=== PATIENT | female | born 1955 | race Caucasian/White ===

== ENCOUNTER → 2021-03-27 | Outpatient (CLI) | payer MEDICARE, OTHER ==
[~2021-03-27] MED LIST: ALBUTEROL NEBULIZER INH; ASPIR-LOW81 MG PO; CEFUROXIME500 MG PO; CURCUMIN250 GM PO; DICLOFENAC PO; ELIQUIS2.5 MG PO; FISH OIL 1,0001 EACH PO; GLUCOPHAGE850 MG PO; LYRICA100 MG PO; MEDROL4 MG PO; METOCLOPRAMIDE H5 MG PO; PERCOCET 7.5-31 EACH PO; PREGABALIN100 MG PO; PRILOSEC OTC20 MG PO; TAMOXIFEN CITRA20 MG PO; TOPROL XL25 MG PO; TYLENOL 500 MG500 MG PO; ULTRAM50 MG PO; VENTOLIN HFA 66.7 GM INH; VITAMIN B12 PO; VITAMIN C1000 MG PO; VITAMIN D PO; ZANAFLEX2 MG PO; ZANTAC PO; ZETIA10 MG PO
== END ==
LOC: KOH-I 09:47
DX: M47.816 Spondylosis without myelopathy or radiculopathy, lumbar region (principal); M51.36 Other intervertebral disc degeneration, lumbar region
CPT/HCPCS: 72110; 72170

== ENCOUNTER → 2021-04-05 | Outpatient (CLI) | payer MEDICARE, OTHER | LOC: KOH-I 12:42 | DX: F17.210 Nicotine dependence, cigarettes, uncomplicated (principal); R91.8 Other nonspecific abnormal finding of lung field | CPT/HCPCS: 71271 ==

== ENCOUNTER → 2021-07-09 | Outpatient (CLI) | payer MEDICARE, OTHER | LOC: KOH-I 14:51 | DX: M54.5 Low back pain (principal); M51.17 Intervertebral disc disorders with radiculopathy, lumbosacral region | CPT/HCPCS: 72148 ==

== ENCOUNTER → 2021-12-24 | Outpatient (CLI) | payer MEDICARE, OTHER | LOC: EXRD 15:02 | DX: M79.662 Pain in left lower leg (principal); M71.22 Synovial cyst of popliteal space [Baker], left knee | CPT/HCPCS: 93971 ==

== ENCOUNTER → 2022-05-08 | Outpatient (CLI) | payer MEDICARE, OTHER | LOC: KOH-I 12:03 | DX: F17.210 Nicotine dependence, cigarettes, uncomplicated (principal); R91.8 Other nonspecific abnormal finding of lung field; J01.00 Acute maxillary sinusitis, unspecified; J32.9 Chronic sinusitis, unspecified | CPT/HCPCS: 70486; 71271 ==